=== PATIENT | female | born 1950 | race Caucasian/White ===

== ENCOUNTER 2018-05-11 08:28 | Inpatient (IN) | payer BC, MEDICARE ==
[~2018-05-11 08:28] MED LIST: Buffered Lidocaine 0.9% SYRIN* 5 ML/SYR SYRINGE INTRADERM ONE
--- OUTSIDE RECORDS SUMMARY | 2018-05-11 08:33 | XMS REPORT ---
:1950 External Reference #:[id number] Author Organization [employer] Address [address] [place] [address] [place] [address] Phone [phone] Care Team Providers Name Role Phone Filiberto Valdes MD Care Team Information Newspaper Stuffer Unavailable Filiberto Valdes MD Primary Care Physician Unavailable Payers Type Date Identification Numbers Payment Provider Subscriber Commercial Policy Number: [id number] [facility] Mayda Gastelum Group Name: [id number] [address] PayID: [id number] [place] [address] Problems Date Description Provider Status Onset: 03/05/2018 Sciatica Jim Varma M.D. Active Onset: 07/02/2016 Derangement of medial meniscus Jim Varma M.D. Active Onset: 07/02/2016 Localized, primary osteoarthritis Jim Varma M.D. Active Family History Date Family Member(s) Problem(s) Comments General No Current Problems Social History Type Date Description Comments Lives With Occupation [employer] Use Drinks Alcoholic Beverages Occasionally Smoking Patient has never smoked Exercise Type/Frequency Exercises regularly Allergies, Adverse Reactions, Alerts Date Description Reaction Status Severity Comments 07/02/2016 Codeine Nausea and Vomiting active Medications Medication Date Status Form Strength Qnty SIG Indications Ordering Provider Neurontin Active Capsules 300mg 1 by bid Unknown 000 Ibuprofen Active Tablets 800mg by mouth Unknown 000 three times a day as needed Crestor Active Tablets 5mg 1 by mouth Unknown 000 every day Dicyclomine Hx Capsules 10mg take 1-2 Unknown HCL 000 - capsules by mouth every 017 six hours as needed Viberzi 0000/0 Hx Tablets 75mg 1 tab by Unknown 000 - mouth every day as 017 needed Vital Signs Date Vital Result Comment 04/17/2018 Height 63 inches 5'3" Weight 172.00 lb Heart Rate 76 /min BP Systolic Recheck 124 mmHg BP Diastolic Recheck 76 mmHg Respiratory Rate 16 /min Body Temperature 97.6 F BMI (Body Mass Index) 30.5 kg/m2 03/05/2018 Height 62 inches 5'2" Weight 172.00 lb Heart Rate 80 /min BP Systolic Recheck 132 mmHg BP Diastolic Recheck 86 mmHg Respiratory Rate 16 /min Body Temperature 97.7 F BMI (Body Mass Index) 31.5 kg/m2 07/21/2017 Height 62 inches 5'2" Weight 172.00 lb Heart Rate 80 /min BP Systolic Recheck 126 mmHg BP Diastolic Recheck 82 mmHg Respiratory Rate 16 /min Body Temperature 97.9 F BMI (Body Mass Index) 31.5 kg/m2 07/02/2016 Height 63 inches 5'3" Weight 170.00 lb Heart Rate 76 /min BP Systolic Recheck 122 mmHg BP Diastolic Recheck 78 mmHg Respiratory Rate 16 /min Body Temperature 98.1 F BMI (Body Mass Index) 30.1 kg/m2 Results Description No Information Procedures Date CPT Code Description Status 03/05/2018 Inject/Drain Joint/Bursa Major W/O US Completed 07/17/2017 Mammogram Completed 07/02/201669833 Inject/Drain Joint/Bursa Major W/O US Completed 07/02/2016 Mammogram Completed Encounters Type Date Location Provider CPT E/M Dx Office Visit 03/05/2018 [facility], [address] M17.11 10:30a Yasmine Jasso M.D. M54.31 Office Visit 07/21/2017 2:15p [facility], [address] N64.4 Yasmine Jasso M.D. Office Visit 07/02/2016 2:30p [facility], [address] M17.11 Yasmine Jasso M.D. M23.231 Plan of Care 04/17/2018 - Jim Varma M.D.M17.11 Unilateral primary osteoarthritis, right kneeFollow up:4 weeks after surgery
[2018-05-11] MEDS ORDERED: ceFAZolin 2 GM PREMIX (*) 2 GM/50 ML BAG IVPB ONE (08:43)
[2018-05-11] MEDS ORDERED: Lidocaine 2% PF * 5 ML VIAL ONE ×3 (08:59→10:30)
[2018-05-11] MEDS ORDERED: Bupivacaine 0.5% PF 10 ML VIAL INJ ONE (08:59)
[2018-05-11] MEDS ORDERED: Sterile Water for Inj* 0 ML ONE (09:00)
[2018-05-11] MEDS ORDERED: ROPIVACAINE 5 MG/ML 30 ML BTL (0.5%) ONE (09:00)
[2018-05-11] MEDS ORDERED: Propofol* 500 MG/50 ML BTL ONE (09:03)
[2018-05-11] MEDS ORDERED: Midazolam* 1 MG/ML 2 ML VIAL (2 MG) ONE ×2 (09:03→09:28)
[2018-05-11] MEDS ORDERED: EPHEDrine (Pressors)* 50 MG/ML VIAL ONE ×2 (09:07→11:09)
[2018-05-11] MEDS ORDERED: KETAMINE HCL* 50 MG/ML 10 ML VIAL ONE (11:14)
[2018-05-11] MEDS ORDERED: Dexamethasone IV* 4 MG/ML 1 ML (4 MG) ONE (11:28)
[2018-05-11] MEDS ORDERED: HYDROmorphone INJ* 0.5 MG/0.5 ML SYRINGE IV PRN (11:52)
[2018-05-11] MEDS ORDERED: Ketorolac INJ* 30 MG/ML 1 ML VIAL IV PRN (11:52)
[2018-05-11] MEDS ORDERED: Naloxone* 0.4 MG/ML 1 ML VIAL IV PRN (11:52)
[2018-05-11] MEDS ORDERED: Ondansetron INJ* 2 MG/ML VIAL IV PRN ×2 (11:52→12:58)
[2018-05-11] MEDS ORDERED: Acetaminophen IV 1GM/100ML * 1,000 MG/100 ML VIAL IVPB ONE (11:52)
[2018-05-11] MEDS ORDERED: Bupivacaine 0.25% W/EPI* 10 ML SDV ONE (12:25)
[2018-05-11] MEDS ORDERED: Cyclobenzaprine TAB* 10 MG PO PRN (12:58)
[2018-05-11] MEDS ORDERED: diPHENhydraMINE PO* 25 MG PO PRN (12:58)
[2018-05-11] MEDS ORDERED: Morphine INJ* 2 MG/ML 1 ML SYRINGE (TWO MG - NEW SYRINGE VERSION) IV PRN (12:58)
[2018-05-11] MEDS ORDERED: Magnesium Hydroxide LIQ* 30 ML UDC PO PRN (12:58)
[2018-05-11] MEDS ORDERED: oxyCODONE TAB* 5 MG TAB PO PRN (12:58)
[2018-05-11] MEDS ORDERED: diPHENhydraMINE IV* 50 MG/ML 1 ml VIAL (BENADRYL) IV PRN (12:58)
[2018-05-11] MEDS ORDERED: Ondansetron TAB* 4 MG PO SCH (13:00)
[2018-05-11] MEDS ORDERED: Acetaminophen TAB* 325 MG PO SCH (13:00)
[2018-05-11] MEDS ORDERED: D5W 1/2 NS 1000 ML BAG* 1,000 ML IV SCH (13:00)
[2018-05-11] MEDS ORDERED: Ondansetron INJ* 2 MG/ML VIAL ONE (13:14)
--- NOTE | 2018-05-11 13:51 | RAD ---
Indication: Right knee arthroplasty 2 views of the right knee demonstrates right knee prosthesis in place with no evidence of periprosthetic fracture. No loosening is noted. IMPRESSION: Right knee replacement in satisfactory position.
[2018-05-11] MEDS: Ondansetron TAB* 4 MG PO SCH ×2 (15:40→21:53)
[2018-05-11] MEDS: traMADol TAB* 50 MG PO SCH ×2 (15:40→21:54)
[2018-05-11] MEDS: Acetaminophen TAB* 325 MG PO SCH ×2 (16:13→23:36)
[2018-05-11] MEDS ORDERED: Warfarin TAB(*) 10 MG PO ONE (17:00)
[2018-05-11] MEDS: ceFAZolin 1 GM in Dextrose (*) 1 GM/50 ML BAG IVPB SCH (20:58)
[2018-05-11] MEDS: Gabapentin CAP(*) 300 MG PO SCH (20:59)
[2018-05-11] MEDS: Docusate CAP* 100 MG PO SCH (20:59)
[2018-05-11] MEDS: Magnesium Hydroxide LIQ* 30 ML UDC PO SCH (21:00)
[2018-05-12] MEDS: traMADol TAB* 50 MG PO SCH ×4 (03:33→21:42)
[2018-05-12] MEDS: Ondansetron TAB* 4 MG PO SCH ×4 (03:33→21:43)
[2018-05-12] MEDS: ceFAZolin 1 GM in Dextrose (*) 1 GM/50 ML BAG IVPB SCH ×2 (03:34→13:51)
[2018-05-12 06:17] LABS: Hematocrit 36 % (35-47); Hemoglobin 12.2 g/dl (12.0-16.0); Mean Platelet Volume 7.6 um3 (7.4-10.4); Platelet Count 280 10^3/ul (150-450)
[2018-05-12 06:24] LABS: INR 0.99 (0.77-1.02)
[2018-05-12] MEDS: Gabapentin CAP(*) 300 MG PO SCH (08:34)
[2018-05-12] MEDS: Magnesium Hydroxide LIQ* 30 ML UDC PO SCH ×2 (08:34→21:42)
[2018-05-12] MEDS: Acetaminophen TAB* 325 MG PO SCH ×3 (08:35→23:43)
[2018-05-12] MEDS: Docusate CAP* 100 MG PO SCH ×2 (08:35→21:42)
--- NOTE | 2018-05-12 08:58 | OP ---
DATE OF OPERATION: 05/11/18 - ROOM #[id number] DATE OF : 52 SURGEON: Jim Varma MD [employer]AGE [employer] INVESTIGATOR: Shara Kevin RPA ANESTHESIA: Spinal/regional/sedation. PRE-OP DIAGNOSIS: Osteoarthritis, right knee. POST-OP DIAGNOSIS: Osteoarthritis, right knee. OPERATIVE PROCEDURE: Right total knee arthroplasty. ESTIMATED BLOOD LOSS: Less than 100 cc. COMPLICATIONS: None. HARDWARE: Zhane Persona #5 femur D tibia, 10-mm polyethylene, 29-mm all- polyethylene patellar button. SUMMARY: Ms. Gastelum is a 67-year-old female who has been having more and more troubles with right knee pain. When she first presented, she had been treated conservatively, initially anti-inflammatories and PT had made a nice difference for her. As time has gone by, the knee has been bothering her more and more and considering that she appeared to be essentially [id number] in the medial compartment with significant spurring and sclerosis, I discussed with her that a total knee arthroplasty should work well to decrease her pain and improve her function. Risks of surgery such as infection, scar formation, stiffness, DVT, pulmonary embolism, hardware failure, and continued pain with some other risks discussed. She had been declared medically optimized and wished to proceed. Shara Kevin was present throughout the case for positioning, approach, cementing and closure, and the case could not have been done without an account management assistant. DESCRIPTION OF PROCEDURE: The patient was brought to the OR after a block had been placed in the holding area. Spinal anesthesia was introduced in the OR and Restrepo catheter was placed. Tourniquet was placed over the proximal right thigh and was used during the case. Total tourniquet time would be almost an hour. Right knee was prepped and then draped. Esmarch was used to exsanguinate the leg and the tourniquet was raised. Midline incision was made centered about the patella and began about 7 or 8 cm above the superior pole of the patella and was carried down to the medial side of the tibial tubercle. Incision was carried down through the skin and subcutaneous fat. Small bleeders encountered, were ligated using electrocautery. Extensor mechanism was exposed and a sharp parapatellar arthrotomy was then made. Quite a bit of clear yellowish joint fluid was encountered. Exposed bone on the medial femoral condyle as well as significant spurring in all 3 compartments was also immediately evident. Fat pad was sharply excised and the soft tissues were sharply elevated from the medial side of the tibia. Patella measured 23 mm in thickness and a nice 10-mm cut was taken. Patella was then easily subluxated laterally and the knee was flexed up. Nice exposure of the distal femur was obtained. Step drill was used to open the femoral canal and intramedullary guide was placed. Guide was adjusted until it was parallel with the epicondyles and posterior condyles and then pinned into place. Distal femoral cutting guide was then pinned into place and the intramedullary guide was removed. Distal femoral cut was taken and appeared a nice cut was obtained. The guide had been set at 4 degrees and to resect 2 mm. Femur was sized and she sat between a 5 and 6. Holes were drilled and a 5 was called for superior hole and the cutting guide was drilled and this came up nicely on the top side of the femur. Anterior and posterior femoral cuts followed by the chamfer cuts were taken. Attention was turned to the tibia. Step drill was used to open the tibial canal and the intramedullary guide was placed. Outrigger was assembled and adjusted until they would take 2 mm from the worn medial side. Bone was rongeured away as she had a lip that stuck outwards, which caused the cutting guide to be pushed downwards so that I would have taken more bone. Cutting guide was eventually pinned into place and rotation was also checked to make sure that rotation was nice and was properly set. Proximal tibial cut was taken and again it seemed a nice cut was obtained. A 10 spacer was then used and she was little loose in flexion as this system is designed to take an extra 2 mm posteriorly and she came out nicely into full extension with just a tiniest bit of wobble. I liked the cuts and the alignment as well as the stability. Tibia was sized and the D sat nicely. The D was pinned into place. Proximal tibia was drilled and then punched. 5 femur was then placed. The notch cut was finished and stud holes were drilled. With 10 polyethylene, she came out nicely into full extension, hyperflexed to about 135 degrees, being limited more by her body habitus than the knee. Patella would sometimes track and sometimes want to slip a little bit laterally. Patella was sized and a 29 sat nicely. Holes were drilled and [address] With flexion- extension, patella tracking was now fine. Trial instrumentation was removed. The knee was copiously pulse lavaged. Cement was being prepared. Tibia followed by femur and patella were all cemented into place. Excess cement was allowed to harden and then once it did, the knee was searched for excess cement pieces, 2 small pieces were found. The knee was again copiously pulse lavaged. She was trialed with a 10 and had the same wonderful motion and stability and the 10 polyethylene was then snapped into place. The knee was again copiously pulse lavaged and parapatellar arthrotomy was repaired using interrupted #1 Vicryl sutures. I had forgotten to inject the posterior capsule so then the knee joint was just injected with 20 cc of 0.5% Marcaine with epinephrine. When the tourniquet went down, no significant bleeding was encountered. Subcutaneous tissues were approximated using 2-0 Vicryl. Skin was closed using wiley. Sterile dressing and a Cryo/Cuff were applied in the OR. The patient was then awakened stable and transferred to the recovery room. [id number]/[facility] #: [id number] BRANDON
--- NOTE | 2018-05-12 09:37 | PN ---
Progress Note - Progress Note Date of Service: 05/12/18 SOAP: Subjective: [] Patient seen at beside. Her right knee pain is well controlled but she has a great deal of cramping in her anterior thigh. She had severe vomiting in the past from taking cyclobenzaprine so she is hesitant to try another muscle relaxant. Denies chest pain, shortness of breath, dizziness or nausea. Objective: [] General: Well appearing, NAD RLE: Dressing CDI, cryo unit intact. Thigh is soft. DF/PF intac, DP2+, sensation intact distally. Calves are supple and nontender without erythema, edema or palpable cords. Assessment: []POD 1 sp right total knee arthroplasty Plan: []WBAT PT/OT Offered muscle relaxants, patient hesitant at this time. May use heat or ice on thigh for comfort Heparin, coumadin 8 mg today Vital Signs Temp 98.1 F 05/12/18 07:22 Pulse 57 05/12/18 07:22 Resp 20 05/12/18 08:34 BP 120/51 05/12/18 07:22 Pulse Ox 93 05/12/18 07:22 Intake & Output 05/11/18 05/12/18 05/12/18 18:59 06:59 18:59 Intake Total 1600 1330 120 Output Total 750 1000 300 Balance 850 330 -180 Weight 180 lb Intake: IV Fluids 1450 980 D5W 1/2 NS 980 LR 1400 NS 50ML, Cefazolin 2G 50 IVPB 50 ABX - CEFAZOLIN 50 Oral 150 300 120 Output: Urine 300 Restrepo 750 1000 Other: # Bowel Movements 0 Estimated Blood Loss 250 Comment Laboratory Last Values Hgb 12.2 g/dl (12.0-16.0) 05/12/18 05:42 Hct 36 % (35-47) 05/12/18 05:42 Plt Count 280 10^3/ul (150-450) 05/12/18 05:42 MPV 7.6 um3 (7.4-10.4) 05/12/18 05:42 INR (Anticoag Therapy) 0.99 (0.77-1.02) 05/12/18 05:42 Sodium 137 mmol/L (135-145) 05/12/18 05:42 Potassium 3.9 mmol/L (3.5-5.0) 05/12/18 05:42 Chloride 105 mmol/L (101-111) 05/12/18 05:42 Carbon Dioxide 27 mmol/L (22-32) 05/12/18 05:42 Anion Gap 5 mmol/L (2-11) 05/12/18 05:42 BUN 12 mg/dL (6-24) 05/12/18 05:42 Creatinine 0.72 mg/dL (0.51-0.95) 05/12/18 05:42 Est GFR ( Amer) 98.1 (>60) 05/12/18 05:42 Est GFR (Non-Af Amer) 81.0 (>60) 05/12/18 05:42 BUN/Creatinine Ratio 16.7 (8-20) 05/12/18 05:42 Glucose 129 mg/dL (70-100) H 05/12/18 05:42 Calcium 9.8 mg/dL (8.6-10.3) 05/12/18 05:42
[2018-05-12] MEDS ORDERED: PROCHLORPERAZINE INJ 5 MG/ML 2 ML VIAL IV PRN (10:03)
[2018-05-12] MEDS: CMC: Rosuvastatin (NF) 5 MG TAB PO SCH (10:18)
[2018-05-12] MEDS: Heparin VIAL(*) 5000 UNITS/ML VIAL (FIVE THOUSAND) SUBCUT SCH ×2 (14:09→21:44)
[2018-05-12] MEDS: Morphine INJ* 2 MG/ML 1 ML SYRINGE (TWO MG - NEW SYRINGE VERSION) IV PRN ×2 (14:16→21:44)
[2018-05-12] MEDS ORDERED: Warfarin TAB(*) 4 MG PO ONE (17:00)
[2018-05-12] MEDS ORDERED: Gabapentin CAP(*) 300 MG PO ONE (17:09)
[2018-05-13] MEDS: traMADol TAB* 50 MG PO SCH ×4 (04:07→21:43)
[2018-05-13] MEDS: Ondansetron TAB* 4 MG PO SCH ×4 (04:08→21:44)
[2018-05-13] MEDS: Heparin VIAL(*) 5000 UNITS/ML VIAL (FIVE THOUSAND) SUBCUT SCH (05:34)
[2018-05-13 05:56] LABS: Hematocrit 35 % (35-47); Hemoglobin 11.6 g/dl (12.0-16.0); Mean Platelet Volume 7.3 um3 (7.4-10.4); Platelet Count 244 10^3/ul (150-450)
[2018-05-13 06:02] LABS: INR 2.15 (0.77-1.02)
[2018-05-13] MEDS: Morphine INJ* 2 MG/ML 1 ML SYRINGE (TWO MG - NEW SYRINGE VERSION) IV PRN (06:12)
[2018-05-13] MEDS: Docusate CAP* 100 MG PO SCH ×2 (08:47→20:52)
[2018-05-13] MEDS: CMC: Rosuvastatin (NF) 5 MG TAB PO SCH (08:47)
[2018-05-13] MEDS: Gabapentin CAP(*) 300 MG PO SCH ×3 (08:47→20:52)
[2018-05-13] MEDS: Acetaminophen TAB* 325 MG PO SCH ×3 (08:48→23:47)
[2018-05-13] MEDS: Magnesium Hydroxide LIQ* 30 ML UDC PO SCH ×2 (08:48→20:52)
--- NOTE | 2018-05-13 09:44 | PN ---
Progress Note - Progress Note Date of Service: 05/13/18 SOAP: Subjective: [] Patient seen at beside. Her right knee pain is well controlled, her only complaint is low back pain and thigh cramping, she does have a history of sciatica. She has used IV morphine to control this pain radiating from low back down her right leg with good effect. Denies chest pain, shortness of breath, dizziness or nausea. Objective: [] General: Well appearing, NAD RLE: Dressing changed, incision CDI, cryo unit intact. Thigh is soft. DF/PF intact, DP2+, sensation intact distally. Calves are supple and nontender without erythema, edema or palpable cords. Assessment: []POD 2 sp right total knee arthroplasty Plan: []WBAT PT/OT Patient will have in house massage therapist come up for attempt at relief of low back pain. Heparin stopped, coumadin 2 mg today Vital Signs Temp 98.2 F 05/13/18 07:28 Pulse 65 05/13/18 07:28 Resp 18 05/13/18 08:47 BP 122/61 05/13/18 07:28 Pulse Ox 91 05/13/18 07:28 Intake & Output 05/12/18 05/13/18 05/13/18 18:59 06:59 18:59 Intake Total 955 700 480 Output Total 1150 1500 300 Balance -195 -800 180 Intake: IV Fluids 20 NS (0.9%) 20 IVPB 50 ABX - CEFAZOLIN 50 Oral 885 700 480 Output: Urine 1150 1500 300 Other: # Bowel Movements 0 Estimated Stool Amount Medium # Voids 2 Laboratory Last Values Hgb 11.6 g/dl (12.0-16.0) L 05/13/18 05:45 Hct 35 % (35-47) 05/13/18 05:45 Plt Count 244 10^3/ul (150-450) 05/13/18 05:45 MPV 7.3 um3 (7.4-10.4) L 05/13/18 05:45 INR (Anticoag Therapy) 2.15 (0.77-1.02) H 05/13/18 05:44 Sodium 137 mmol/L (135-145) 05/12/18 05:42 Potassium 3.9 mmol/L (3.5-5.0) 05/12/18 05:42 Chloride 105 mmol/L (101-111) 05/12/18 05:42 Carbon Dioxide 27 mmol/L (22-32) 05/12/18 05:42 Anion Gap 5 mmol/L (2-11) 05/12/18 05:42 BUN 12 mg/dL (6-24) 05/12/18 05:42 Creatinine 0.72 mg/dL (0.51-0.95) 05/12/18 05:42 Est GFR ( Amer) 98.1 (>60) 05/12/18 05:42 Est GFR (Non-Af Amer) 81.0 (>60) 05/12/18 05:42 BUN/Creatinine Ratio 16.7 (8-20) 05/12/18 05:42 Glucose 129 mg/dL (70-100) H 05/12/18 05:42 Calcium 9.8 mg/dL (8.6-10.3) 05/12/18 05:42
[2018-05-13] MEDS ORDERED: Bisacodyl SUPP* 10 MG SUPP PR PRN (12:58)
[2018-05-13] MEDS ORDERED: Warfarin TAB(*) 2 MG PO NR (17:00)
[2018-05-14] MEDS: traMADol TAB* 50 MG PO SCH ×2 (04:19→10:00)
[2018-05-14] MEDS: Ondansetron TAB* 4 MG PO SCH ×2 (04:19→10:00)
[2018-05-14 06:04] LABS: Hematocrit 34 % (35-47); Hemoglobin 11.5 g/dl (12.0-16.0); Mean Platelet Volume 7.5 um3 (7.4-10.4); Platelet Count 248 10^3/ul (150-450)
[2018-05-14 06:10] LABS: INR 3.57 (0.77-1.02)
[2018-05-14] MEDS: Docusate CAP* 100 MG PO SCH (07:54)
[2018-05-14] MEDS: Magnesium Hydroxide LIQ* 30 ML UDC PO SCH (07:54)
[2018-05-14] MEDS: CMC: Rosuvastatin (NF) 5 MG TAB PO SCH (07:55)
[2018-05-14] MEDS: Acetaminophen TAB* 325 MG PO SCH (07:55)
[2018-05-14] MEDS: Gabapentin CAP(*) 300 MG PO SCH ×2 (07:55→13:39)
--- NOTE | 2018-05-14 09:09 | PN ---
Progress Note - Progress Note Date of Service: 05/14/18 SOAP: Subjective: [] Patient seen at bedside. She feels very well today and did not need IV pain medication overnight. Massage helped greatly with her low back pain. Denies CP, SOB, dizziness, leg numbness. Her incision is not painful, most of her pain is the right medial knee which was present prior to surgery and is tolerable at this time. Objective: []General: Well appearing, NAD RLE: Dressing changed, incision CDI, cryo unit in use. Thigh is soft. DF/PF intact, DP2+, sensation intact distally. Calves are supple and nontender without erythema, edema or palpable cords. Assessment: []POD 3 sp right total knee arthroplasty Plan: []WBAT PT/OT Coumadin 0 mg today Plan DC to home after morning PT Vital Signs Temp 98.6 F 05/14/18 07:18 Pulse 70 05/14/18 07:18 Resp 16 05/14/18 07:55 BP 129/65 05/14/18 07:18 Pulse Ox 96 05/14/18 07:18 Intake & Output 05/13/18 05/14/18 05/14/18 18:59 06:59 18:59 Intake Total 1530 400 480 Output Total 850 1275 400 Balance 680 -875 80 Intake: Oral 1530 400 480 Output: Urine 850 1275 400 Other: Date of Last Bowel 05/13/18 Movement # Bowel Movements 1 0 Estimated Stool Amount Small Medium Laboratory Last Values Hgb 11.5 g/dl (12.0-16.0) L 05/14/18 05:42 Hct 34 % (35-47) L 05/14/18 05:42 Plt Count 248 10^3/ul (150-450) 05/14/18 05:42 MPV 7.5 um3 (7.4-10.4) 05/14/18 05:42 INR (Anticoag Therapy) 3.57 (0.77-1.02) H 05/14/18 05:42 Sodium 137 mmol/L (135-145) 05/12/18 05:42 Potassium 3.9 mmol/L (3.5-5.0) 05/12/18 05:42 Chloride 105 mmol/L (101-111) 05/12/18 05:42 Carbon Dioxide 27 mmol/L (22-32) 05/12/18 05:42 Anion Gap 5 mmol/L (2-11) 05/12/18 05:42 BUN 12 mg/dL (6-24) 05/12/18 05:42 Creatinine 0.72 mg/dL (0.51-0.95) 05/12/18 05:42 Est GFR ( Amer) 98.1 (>60) 05/12/18 05:42 Est GFR (Non-Af Amer) 81.0 (>60) 05/12/18 05:42 BUN/Creatinine Ratio 16.7 (8-20) 05/12/18 05:42 Glucose 129 mg/dL (70-100) H 05/12/18 05:42 Calcium 9.8 mg/dL (8.6-10.3) 05/12/18 05:42
[2018-05-14 11:31] VITALS: BP 135/59
--- NOTE | 2018-05-15 00:24 | DS ---
DISCHARGE SUMMARY: DATE OF ADMISSION: 05/11/18 DATE OF DISCHARGE: PROVIDER: Jim Varma MD * (DICTATED BY VICTORIANO AG) CARE CENTER MANAGER: VICTORIANO Ag PREOPERATIVE DIAGNOSIS: Arthritis of the right knee. OPERATIVE PROCEDURE: Right total knee arthroplasty. HISTORY: Ms. Gastelum is a 67-year-old female who is having more and more trouble with right knee pain. She failed conservative management and elected to undergo a right total knee arthroplasty. HOSPITAL COURSE: The patient was admitted to the [facility] on 05/11. She underwent a right total knee arthroplasty without complication. She recovered briefly in the PACU unit and was transferred to the short-stay surgical unit in stable condition. On postop day 1, she is well-appearing in no acute distress. Dressing clean, dry, intact. Thigh was soft though she did complain of muscle spasm of the thigh as well as her typical sciatica pain in the right lower back. Her dorsiflexion and plantar flexion was intact. DP pulse 2+. Sensation intact distally. Postop day 2, she is well-appearing, in no acute distress. Dressing was changed. Incision was clean, dry, intact. Cryo unit intact. Thigh was soft. The patient had massage of her low back today as well as the upper thigh, which offered great relief in terms of muscle spasm and of sciatic pain. Massage therapist was careful to avoid the incision and did not use any oils on this area. Postop day 3, the patient was well- appearing, in no acute distress. Dressing was changed. Incision clean, dry, intact. Cryo unit in use. Thigh was soft. Dorsiflexion and plantar flexion intact. Dorsalis pedis pulses 2+. Sensation intact distally. The patient's low back pain as well as muscle spasms are entirely relieved. Her vital signs are temperature 98.6, pulse 70, respiratory rate 16, blood pressure 129/65, pulse ox 65. Hemoglobin 11.5, hematocrit 34, platelet count 248. INR 3.57. The patient was deemed to be stable for discharge home. DISCHARGE MEDICATIONS: Include: 1. Gabapentin 300 mg p.o. b.i.d. 2. Rosuvastatin 5 mg p.o. q.a.m. 3. Ibuprofen 800 mg p.o. b.i.d. p.r.n. 4. Acetaminophen 975 mg q. 4 hours p.r.n. max daily dose of 4000 mg from all sources. 5. Docusate 100 mg p.o. b.i.d. 6. Tramadol 50 mg p.o. q. 6 hours p.r.n. 7. Morphine 2 mg tab daily, 1 to 3 tablets daily depending on INR dosing. 8. Ultram 50 mg one tablet every 4 to 6 hours as what is given. DISCHARGE INSTRUCTIONS: Weightbearing as tolerated. Okay to shower after the third postoperative day. Visiting home nurse to remove wiley in 10 to 12 days and do wound checks. Coumadin dosing 05/14/18, 0 mg; 05/15/18, 0 mg; 05/16, 2 mg; 05/17/18, 2 mg. Repeat INR on 05/18/18, for further dosing instructions. Pain control with Ultram 50 mg every 4 to 6 hours as needed for pain, take a maximum of 8 tabs per day, wean off Ultram to Tylenol only as your pain allows, may use Tylenol [id number], maximum dose of Tylenol on a day is 4000 mg from all sources. Percocet is not given. Acetaminophen is not given. Follow up with Dr. Varma in 4 weeks. VICTORIANO AG [id number]/[facility] #: [id number] MTDD
== END 2018-05-14 14:05 | disposition home health service (06) | DRG 302 ==
LOC: AA 08:28 → SSU 15:12
PROVIDERS: ADMIT Orthopaedic Surgery; ATTEND Orthopaedic Surgery
PROC: 0SRC0J9 Replacement of Right Knee Joint with Synthetic Substitute, Cemented, Open Approach (ICD-10-PCS; principal; 2018-05-11 10:00)
DX: M17.11 Unilateral primary osteoarthritis, right knee (principal); E66.9 Obesity, unspecified; M23.231 Derangement of other medial meniscus due to old tear or injury, right knee; M54.31 Sciatica, right side; M62.838 Other muscle spasm; E78.2 Mixed hyperlipidemia; K58.9 Irritable bowel syndrome, unspecified; Z86.718 Personal history of other venous thrombosis and embolism; Z90.49 Acquired absence of other specified parts of digestive tract; Z88.5 Allergy status to narcotic agent; Z68.31 Body mass index [BMI] 31.0-31.9, adult; Z98.51 Tubal ligation status; Z72.89 Other problems related to lifestyle; Z86.19 Personal history of other infectious and parasitic diseases
CPT/HCPCS: 36415; 80048; 85014; 85018; 85049; 85610; 88305; 88311; A9270-GY; C1776; G8978-GP-CI; G8978-GP-CJ; G8979-GP-CH; G8979-GP-CI; G8980-GP-CI; G8987-GO-CJ; G8988-GO-CI; J0690; J1100; J1644; J2250; J2270; J2405; J2704; J2795